=== PATIENT | female | born 1955 | race Caucasian/White ===

== ENCOUNTER 2018-05-23 14:25 | Emergency (ER) | payer BC ==
--- NOTE | 2018-05-23 14:49 | ERPHSYRPT ---
- History of Present Illness Time Seen by Provider: 05/23/18 14:43 Source: patient Patient Subjective Stated Complaint: Pt states "I was stepping down and I stumbled and fell hitting my right knee and my head." Triage Nursing Assessment: Pt alert and oriented X 3, skin pwd. PT speech clear full sentences. Pt right knee has slight bruising, slight swelling. 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 pt also hit her head left side. denies headache, denies loc. no bleeding disorders and no anticoag tx. 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 pt refusing a ct scan brain. she does not think she needs one Method of Injury: fell Occurred: just prior to arrival Quality: aching Severity of Pain-Max: mild Severity of Pain-Current: mild Lower Extremities Pain: knee: right Modifying Factors: Improves With: movement (worsens), rest (improves) Associated Symptoms: No unable to bear weight, No dizzy, No fainted, No seizure , No snapping sensation, No popping sensation Allergies/Adverse Reactions: No Known Drug Allergies Allergy (Unverified 05/23/18 14:41) Home Medications: Unobtainable 05/23/18 [History] Hx Tetanus, Diphtheria Vaccination/Date Given: No Hx Influenza Vaccination/Date Given: No Hx Pneumococcal Vaccination/Date Given: No Immunizations Up to Date: Yes - Review of Systems Constitutional: No Symptoms, No Fever, No Chills Eyes: No Symptoms, No Discharge, No Eye Pain Ears, Nose, & Throat: No Symptoms, No Ear Pain, No Hearing Changes, No Nose Congestion Respiratory: No Symptoms, No Cough, No Dyspnea, No Stridor, No Wheezing Cardiac: No Symptoms, No Chest Pain, No Palpitations, No Syncope Abdominal/Gastrointestinal: No Symptoms, No Abdominal Pain, No Nausea, No Vomiting, No Diarrhea Genitourinary Symptoms: No Symptoms, No Dysuria, No Frequency, No Hematuria Musculoskeletal: Fall, Injury, No Back Pain, No Neck Pain Skin: No Symptoms Neurological: No Symptoms Psychological: No Symptoms, No Anxiety Endocrine: No Symptoms, No Polyuria, No Polydipsia Hematologic/Lymphatic: No Symptoms Immunological/Allergic: No Symptoms All Other Systems: Reviewed and Negative - Past Medical History Pertinent Past Medical History: Yes Cardiac History: High Cholesterol, Hypertension Musculoskeletal History: Arthritis GI Medical History: No Pertinent History History: No Pertinent History Psycho-Social History: No Pertinent History Female Reproductive Disorders: No Pertinent History - Past Surgical History Past Surgical History: Yes Neuro Surgical History: No Pertinent History Cardiac: No Pertinent History Respiratory: No Pertinent History Gastrointestinal: No Pertinent History Genitourinary: No Pertinent History Musculoskeletal: No Pertinent History Female Surgical History: No Pertinent History Other Surgical History: john. hysterectomy. tubal - Social History Smoking Status: Former smoker Exposure to second hand smoke: No Drug Use: none Patient Lives Alone: No - Female History Hx Now: No - Nursing Vital Signs Nursing Vital Signs: Initial Vital Signs Temperature 98.4 F 05/23/18 14:35 Pulse Rate 80 05/23/18 14:35 Respiratory Rate 16 05/23/18 14:35 Blood Pressure 157/104 05/23/18 14:35 O2 Sat by Pulse Oximetry 94 L 05/23/18 14:35 Pain Scale Pain Intensity 5 - Physical Exam General Appearance: no apparent distress, alert, anxiety Eyes, Ears, Nose, Throat Exam: normal ENT inspection, TMs normal Neck Exam: normal inspection, non-tender, supple, full range of motion Cardiovascular/Respiratory Exam: chest non-tender, regular rate/rhythm, No normal breath sounds, No heart sounds normal, No no respiratory distress Gastrointestinal/Abdominal Exam: non-tender, soft, No guarding, No tenderness Back Exam: normal inspection, normal range of motion, No CVA tenderness, No vertebral tenderness Hips Exam: bilateral: non-tender, normal inspection, normal range of motion, no evidence of injury Legs Exam: bilateral leg: non-tender, normal inspection, normal range of motion , no evidence of injury Knees Exam: right knee: bone tenderness, soft tissue tenderness, left knee: non- tender, normal inspection, normal range of motion, no evidence of injury Ankle Exam: bilateral ankle: non-tender, normal inspection, normal range of motion, no evidence of injury Foot Exam: bilateral foot: non-tender, normal inspection, normal range of motion , no evidence of injury Neuro/Tendon Exam: normal sensation, normal motor functions, normal tendon functions Mental Status Exam: alert, oriented x 3, cooperative Skin Exam: normal color, warm, dry SpO2 Interpretation: borderline oxygenation SpO2: 94 Oxygen Delivery: Room Air - Course Nursing assessment & vital signs reviewed: Yes Ordered Tests: Active Orders 24 hr Category Date Time Status KNEE (3 VIEWS) Stat Exams 05/23/18 15:06 Completed - Progress Progress: pain not gone completely, re-examined Progress Note: 05/23/18 16:03 xray right knee no acute fx or dislocation. Counseled pt/family regarding: diagnosis, need for follow-up, rad results - Departure Time of Disposition: 16:04 Departure Disposition: Home Clinical Impression: Contusion of right knee Condition: Stable Critical Care Time: No Additional Instructions: ice pack 3 times daily for 2 days. wear gale wrap for comfort. tylenol and ibuprofen for pain. ambulate as tolerated.
--- NOTE | 2018-05-23 15:24 | XRAY ---
Indication: Pain following hyperextension. Comparison: None 3 views of the right knee demonstrates tiny suprapatellar spurring. No other bony, articular, or soft tissue abnormalities.
[2018-05-23 15:54] VITALS: BP 158/100; PULSE 78
[2018-05-23 16:06] VITALS: O2SAT 94
[2018-05-23] MEDS ORDERED: NORCO 5/325 MG PO ONE (16:06)
[2018-05-23] MEDS ORDERED: NORCO 5/325 MG ONE (16:09)
== END 2018-05-23 16:32 | disposition home or self-care (01) ==
LOC: ED 14:25
DX: S80.01XA Contusion of right knee, initial encounter (principal); W10.9XXA Fall (on) (from) unspecified stairs and steps, initial encounter
CPT/HCPCS: 73562; 99284; A9270-GY